=== PATIENT | male | born 1950 | race Caucasian/White ===

== ENCOUNTER → 2018-11-07 | Outpatient (CLI) | payer MEDICARE, OTHER ==
[~2018-11-07] MED LIST: ASP81TEC PO; CLOP75TA PO; HYDR-34 PO; HYDR-623 PO; LIRA0.6P SQ; METF-380 PO; Ondansetron PO; SIMV40TA4 PO; TELM1TAB PO
--- NOTE | 2018-11-07 16:41 | Diagnostic Imaging Report ---
EXAMINATION: PA and lateral chest at 2:18 p.m. INDICATION: Pneumonia. FINDINGS: The heart size is within normal limits and stable when compared to 05/07/2013. The lungs are clear. There is no evidence for failure, pneumonia, or for a pleural effusion. The mediastinum is not widened. The osseous structures are intact. In the interval since the prior exam, the patient has undergone a total shoulder arthroplasty procedure on the right. The shoulder prosthesis where visualized seems to be in good position. IMPRESSION: 1. There is no evidence for an acute cardiopulmonary abnormality. 2. There has been interval total shoulder arthroplasty procedure on the right. Dictated by: Dictated on workstation # [id number]
== END ==
LOC: RAD 14:12
PROVIDERS: ATTEND Family Medicine
DX: R06.00 Dyspnea, unspecified (principal)
CPT/HCPCS: 71046

== ENCOUNTER 2018-12-08 17:00 | Observation (INO) | payer MEDICARE, OTHER ==
[2018-12-08] VITALS (7 sets, daily range): BP systolic 113–168; BP diastolic 56–99
[~2018-12-08] VITALS: Ht 182.8 cm; Wt 99.4 kg
[2018-12-08] MEDS ORDERED: NS IV 1000 ML 1,000 ML IV ONE (17:23)
[2018-12-08 17:30] LABS: BASOPHILS # (AUTO) 0.1 10^3/uL (0.0-0.1); BASOPHILS % (AUTO) 1 % (0-10); EOSINOPHILS # (AUTO) 0.6 10^3/uL (0.0-0.3); EOSINOPHILS % (AUTO) 7 % (0-10); HEMATOCRIT 43 % (40-54); HEMOGLOBIN 14.1 G/DL (13.3-17.7); LYMPHOCYTES # (AUTO) 2.7 X 10^3 (1.0-4.0); LYMPHOCYTES % (AUTO) 32 % (12-44); MEAN CORPUSCULAR HEMOGLOBIN 29 PG (25-34); MEAN CORPUSCULAR HGB CONC 33 G/DL (32-36); MEAN CORPUSCULAR VOLUME 88 FL (80-99); MEAN PLATELET VOLUME 9.3 FL (7.4-10.4); MONOCYTES # (AUTO) 0.7 X 10^3 (0.0-1.0); MONOCYTES % (AUTO) 8 % (0-12); NEUTROPHILS # (AUTO) 4.4 X 10^3 (1.8-7.8); NEUTROPHILS % (AUTO) 52 % (42-75); PLATELET COUNT 245 10^3/uL (130-400); RED CELL DISTRIBUTION WIDTH 13.2 % (10.0-14.5); WHITE BLOOD COUNT 8.4 10^3/uL (4.3-11.0)
[2018-12-08] MEDS ORDERED: NITROGLYCERIN 0.4 MG SL TABS BTL 25'S SL PRN ×2 (17:30→22:30)
--- NOTE | 2018-12-08 17:33 | ED Chest Pain ---
General Chief Complaint: Chest Pain Stated Complaint: CHEST PAIN Nursing Triage Note: PT AMBULATE TO ROOM 04 WITH C/O CHEST PAIN STARTING TODAY. PT C/O LEFT LEG NUMBNESS WITHOUT WEAKNESS OR SYNCOPE. Nursing Sepsis Screen: No Definite Risk Source: patient Exam Limitations: no limitations (SHIRAZ FRANCISCO MD) History of Present Illness Date Seen by Provider: Dec 08, 2018 Time Seen by Provider: 17:15 Initial Comments Here with report of chest pain that is left-sided that is intermittently on the right side. He's had more frequent and longer lasting chest pain over the last several weeks. Over the last couple of months he has had cough and congestion and has been treated for walking pneumonia that has not gotten better. Today he had several episodes of chest pain that are persistent and the most persistent is on the left side just below the nipple line. Has history of multiple cardiac stents. He is not on blood thinners and does not take aspirin regularly. He did take 3 full dose aspirin at noon today for the chest pain. He went to the walk- in clinic and was ultimately sent here. He had improvement of the clinic while on oxygen. Denies nausea, vomiting or diaphoresis. Complains of left lower leg pain intermittent and does admit to a long car ride at onset of breathing problems after going to and from [place]. 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 Brand name Plavix ok. Home Medications Aspirin 81 Mg Tabec, 81 MG PO DAILY, (Reported) Clopidogrel Bisulfate 75 Mg Tablet, 75 MG PO DAILY, (Reported) Hctz/Telmisartan 1 Each Tablet, 0.5 TAB PO DAILY, (Reported) take 1/2 tablet (40mg/12.5mg) po once daily Hydrocodone Bit/Acetaminophen 1 Ea Tablet, 1 EA PO Q4H PRN for PAIN Prescribed by: STEPHEN ESPINOZA on 05/09/131411 Liraglutide 0.6 Mg/0.1 Ml Pen.injctr, 1.8 MG SQ DAILY, (Reported) Metformin Hcl 1,000 Mg Tablet, 1,000 MG PO BID WITH MEALS, (Reported) Simvastatin 40 Mg Tablet, 40 MG PO DAILY, (Reported) [Ondansetron] 8 MG TAB, 4 MG PO Q6H PRN for NAUSEA Prescribed by: STEPHEN ESPINOZA on 05/09/131411 Patient Home Medication List Home Medication List Reviewed: Yes (SHIRAZ FRANCISCO MD) Review of Systems Review of Systems Constitutional: see HPI; No chills, No fever; weakness EENTM: No Symptoms Reported Respiratory: Cough, Shortness of Air Cardiovascular: Chest Pain; Denies Palpitations Gastrointestinal: No Symptoms Reported Genitourinary: No Symptoms Reported Musculoskeletal: no symptoms reported Skin: no symptoms reported (SHIRAZ FRANCISCO MD) All Other Systems Reviewed Negative Unless Noted: Yes (SHIRAZ FRANCISCO MD) Past Mhuwgka-Yhckdt-Lktzbc Hx Past Med/Social Hx: Reviewed Nursing Past Med/Soc Hx (SHIRAZ FRANCISCO MD) Patient Social History Alcohol Use: Denies Use Recreational Drug Use: No Smoking Status: Never a Smoker 2nd Hand Smoke Exposure: No Recent Foreign Travel: No Contact w/Someone Who Travel: No Recent Infectious Disease Expo: No Physical Abuse: No Sexual Abuse: No Mistreated: No Fear: No (SHIRAZ FRANCISCO MD) Immunizations Up To Date Tetanus Booster (TDap): Less than 5yrs (SHIRAZ FRANCISCO MD) Past Medical History Surgeries: Yes (RIGHT SHOULDER SCOPE, CARDIAC STENTS) Adenoidectomy, Appendectomy, Tonsillectomy Respiratory: No Cardiac: Yes (MVP, CORONARY STENT X1) Neurological: No Genitourinary: No Gastrointestinal: Yes (HX OF BLEEDING ULCERS) Musculoskeletal: Yes (DJD RIGHT SHOULDER) Arthritis Endocrine: Yes Diabetes, Insulin dep HEENT: No Cancer: No Psychosocial: No Integumentary: No Blood Disorders: No (SHIRAZ FRANCISCO MD) Coronary Stent Coronary Artery Disease, Hypertension (CARLOTA BERRY MD) Family Medical History Reviewed Nursing Family Hx (SHIRAZ FRANCISCO MD) Physical Exam Vital Signs Vital Signs - First Documented 12/08/18 17:07 Temp 36.5 Pulse 86 Resp 18 B/P (MAP) 144/95 (111) O2 Delivery Room Air (CARLOTA BERRY MD) Vital Signs Capillary Refill : Less Than 3 Seconds (SHIRAZ FRANCISCO MD) Height, Weight, BMI Height: 6'1.00" Weight: 207lbs. oz. 93.196062ur; 29.00 BMI Method: General Appearance: No Apparent Distress, WD/WN HEENT: PERRL/EOMI, Pharynx Normal Neck: Non Tender, Supple Respiratory: Lungs Clear, Normal Breath Sounds Cardiovascular: Regular Rate, Rhythm, No Murmur Gastrointestinal: Non Tender, Soft Extremity: Normal Range of Motion, Non Tender Neurologic/Psychiatric: Alert, Oriented x3 Skin: Normal Color, Warm/Dry (SHIRAZ FRANCISCO MD) Progress/Results/Core Measures Results/Orders Lab Results Laboratory Tests Test 12/08/18 17:12 12/08/18 17:45 12/08/18 19:40 Range/Units White Blood Count 8.4 4.3-11.0 10^3/uL Red Blood Count 4.83 4.35-5.85 10^6/uL Hemoglobin 14.1 13.3-17.7 G/DL Hematocrit 43 40-54 % Mean Corpuscular Volume 88 80-99 FL Mean Corpuscular Hemoglobin 29 25-34 PG Mean Corpuscular Hemoglobin Concent 33 32-36 G/DL Red Cell Distribution Width 13.2 10.0-14.5 % Platelet Count 245 130-400 10^3/uL Mean Platelet Volume 9.3 7.4-10.4 FL Neutrophils (%) (Auto) 52 42-75 % Lymphocytes (%) (Auto) 32 12-44 % Monocytes (%) (Auto) 8 0-12 % Eosinophils (%) (Auto) 7 0-10 % Basophils (%) (Auto) 1 0-10 % Neutrophils # (Auto) 4.4 1.8-7.8 X 10^3 Lymphocytes # (Auto) 2.7 1.0-4.0 X 10^3 Monocytes # (Auto) 0.7 0.0-1.0 X 10^3 Eosinophils # (Auto) 0.6 H 0.0-0.3 10^3/uL Basophils # (Auto) 0.1 0.0-0.1 10^3/uL Prothrombin Time 13.3 12.2-14.7 SEC INR Comment 1.0 0.8-1.4 Activated Partial Thromboplast Time 27 24-35 SEC Sodium Level 143 135-145 MMOL/L Potassium Level 4.2 3.6-5.0 MMOL/L Chloride Level 105 98-107 MMOL/L Carbon Dioxide Level 25 21-32 MMOL/L Anion Gap 13 5-14 MMOL/L Blood Urea Nitrogen 19 H 7-18 MG/DL Creatinine 1.45 H 0.60-1.30 MG/DL Estimat Glomerular Filtration Rate 49 BUN/Creatinine Ratio 13 Glucose Level 93 70-105 MG/DL Calcium Level 9.8 8.5-10.1 MG/DL Corrected Calcium 8.5-10.1 MG/DL Magnesium Level 1.9 1.6-2.4 MG/DL Total Bilirubin 0.5 0.1-1.0 MG/DL Aspartate Amino Transf (AST/SGOT) 22 5-34 U/L Alanine Aminotransferase (ALT/SGPT) 29 0-55 U/L Alkaline Phosphatase 85 40-136 U/L Myoglobin 63.5 10.0-92.0 NG/ML Troponin I < 0.028 < 0.028 <0.028 NG/ML Total Protein 7.5 6.4-8.2 GM/DL Albumin 4.6 H 3.2-4.5 GM/DL D-Dimer 0.32 0.00-0.49 UG/ML (CARLOTA BERRY MD) My Orders Orders - CARLOTA BERRY MD Chest Pa/Lat (2 View) (12/08/18 18:47) Troponin I (12/08/18 19:12) Metoprolol Succinate (Xl) Tab (Toprol Xl (12/08/18 20:45) Clopidogrel Tablet (Plavix Tablet) (12/08/18 20:45) (CARLOTA BERRY MD) Medications Given in ED Current Medications Medications Dose Ordered Sig/Paul Route Start Time Stop Time Status Last Admin Dose Admin Nitroglycerin 0.4 mg UD PRN SL 12/08/18 17:30 12/08/18 17:40 0.4 MG Sodium Chloride 1,000 ml @ 0 mls/hr Q0M ONCE IV 12/08/18 17:23 12/08/18 17:25 DC 12/08/18 17:40 999 MLS/HR (CARLOTA BERRY MD) Vital Signs/I&O 12/08/18 12/08/18 17:07 17:18 Temp 36.5 Pulse 86 Resp 18 B/P (MAP) 144/95 (111) O2 Delivery Room Air Room Air (CARLOTA BERRY MD) Blood Pressure Mean: 111 POS Progress Progress Note : Progress Note Seen and evaluated. IV, labs, EKG and chest x-ray ordered. ASA with held as patient took that this morning. Nitroglycerin sublingual ordered. Normal saline 1 L bolus. Patient is at higher risk for pulmonary embolism and has left leg pain with recent long car rides and shortness of air. We will go ahead and get CT angiogram of the chest. Monitor patient. (SHIRAZ FRANCISCO MD) Progress Note #1: Progress Note Care of this patient was assumed from Dr. Francisco. Verbal report was reviewed in chart has been reviewed. Patient reports his chest pain completely resolved with one nitroglycerin and has not returned. He states prominent symptoms recently have been easy fatigue with exertion and shortness of breath with exertion. He also sometimes feels tightness and/or pain in his chest when he lays down at night. He has been off Plavix for years but does have a history of coronary artery disease with stenting. CT angiogram of the chest had been considered earlier in the visit but his d-dimer is negative. I have inquired about his leg symptoms. He describes the left leg discomfort as numbness without pain. It starts behind the knee and radiates down toward the foot. He has no swelling, erythema, or tenderness in the calf or foot. Pedal pulses are equal and strong. I do not suspect DVT of the leg or PE of the chest after reviewing his d-dimer and reexamining him. Chest is clear to auscultation at this time with no wheezing or prolongation of expiratory phase. I will reassess after the 2 hour troponin and discussed with cardiology. Patient reports he has an appointment set up with Dr. Thapa for December 19. Progress Note #2: Time: 21:03 Progress Note Repeat troponin was negative. Patient remains pain-free. I discussed the case with Dr. Bullard who would like him admitted for observation. He requested that I add a beta liss and Plavix which will be done in the ER. Patient finished his liter of IV fluid to support his renal function. Progress Note #3: Time: 21:31 Progress Note Patient states that he has an allergic reaction to generic clopidogrel. He is only able to take brand-name Plavix. Since brand-name Plavix is not available, we will substitute with Brilinta. (CARLOTA BERRY MD) Initial ECG Impression Date: Dec 08, 2018 Initial ECG Impression Time: 17:09 Initial ECG Rate: 81 Initial ECG Rhythm: Normal Sinus Initial ECG Comparisson: No Previous ECG Available Comment Sinus rhythm with normal axis. No evidence of ST elevation [place]. No previous available for comparison. Interpreted by me. (SHIRAZ FRANCISCO MD) Diagnostic Imaging Diagonstic Imaging: Xray Plain Films/CT/US/NM/MRI: chest Comments Chest x-ray viewed by me and report reviewed. See report below: NAME: RANDY SERNA [facility] REC#: [id number] PT STATUS: REG ER : 1950 PHYSICIAN: CARLOTA BERRY MD ADMIT DATE: 12/08/18/ER Draft POSDate of Exam:12/08/18 CHEST PA/LAT (2 VIEW) INDICATION: Chest pain, leg numbness. COMPARISON: November 07, 2018. TECHNIQUE: Two radiographs of the chest dated December 08, 2018. FINDINGS: The cardiac silhouette and pulmonary vasculature are within normal limits. The lungs are clear. No pleural effusion. No pneumothorax. Right shoulder arthroplasty. No acute osseous abnormality. IMPRESSION: Stable examination without acute cardiopulmonary abnormality. Dictated on workstation # [id number] Dict: 12/08/181932 Trans: 12/08/181934 [id number] Interpreted by: ANDREINA VEGA MD (CARLOTA BERRY MD) Departure Communication (Admissions) Time/Spoke to Admitting Phy: 20:52 Dr. Middleton Time/Spoke to Consulting Phy: 20:40 Dr. Bullard (CARLOTA BERRY MD) Impression Primary Impression: Chest pain Qualified Codes: R07.9 - Chest pain, unspecified Additional Impressions: Dyspnea on exertion Coronary artery disease Qualified Codes: I25.10 - Atherosclerotic heart disease of [place] coronary artery without angina pectoris Disposition: ADMITTED INPATIENT Condition: Improved Admissions Decision to Admit Reason: Admit from ER (General) Decision to Admit/Date: Dec 08, 2018 Time/Decision to Admit Time: 20:40 (CARLOTA BERRY MD) Departure-Patient Inst. Referrals: MUKESH CIFUENTES MD (PCP/Family) Primary Care Physician SHIRAZ FRANCISCO MD Dec 08, 2018 17:33 CARLOTA TONEY MD Dec 08, 2018 19:49 POS
[2018-12-08 17:37] LABS: PROTHROMBIN TIME PATIENT 13.3 SEC (12.2-14.7)
[2018-12-08 17:42] LABS: ALANINE AMINOTRANSFERASE 29 U/L (0-55); ALBUMIN 4.6 GM/DL (3.2-4.5); ALKALINE PHOSPHATASE 85 U/L (40-136); BILIRUBIN,TOTAL 0.5 MG/DL (0.1-1.0); BUN/CREATININE RATIO 13; CALCIUM 9.8 MG/DL (8.5-10.1); CARBON DIOXIDE 25 MMOL/L (21-32); CHLORIDE 105 MMOL/L (98-107); CREATININE SERUM 1.45 MG/DL (0.60-1.30); GFR ESTIMATED 49; GLUCOSE 93 MG/DL (70-105); MAGNESIUM 1.9 MG/DL (1.6-2.4); POTASSIUM 4.2 MMOL/L (3.6-5.0); SODIUM 143 MMOL/L (135-145); TOTAL PROTEIN 7.5 GM/DL (6.4-8.2)
[2018-12-08] MEDS ORDERED: CATHETER FLUSH 10 ML SYR IV PRN (17:45)
[2018-12-08] MEDS ORDERED: HOLD METFORMIN - RECEIVED CONTRAST 20 ML VIAL IV SCH (17:45)
[2018-12-08] MEDS ORDERED: NS 100 ML (IVPB) BAG IV ONE (17:45)
[2018-12-08] MEDS ORDERED: IOHEXOL 350 MG/ML 150 ML (OMNIPAQUE 350) VIAL IV ONE (17:45)
--- NOTE | 2018-12-08 19:02 | NUR ---
Recieved report from FREDA Kuo to assume care of pt @ this time.
--- NOTE | 2018-12-08 19:36 | Diagnostic Imaging Report ---
INDICATION: Chest pain, leg numbness. COMPARISON: November 07, 2018. TECHNIQUE: Two radiographs of the chest dated December 08, 2018. FINDINGS: The cardiac silhouette and pulmonary vasculature are within normal limits. The lungs are clear. No pleural effusion. No pneumothorax. Right shoulder arthroplasty. No acute osseous abnormality. IMPRESSION: Stable examination without acute cardiopulmonary abnormality. Dictated by: Dictated on workstation # [id number]
[2018-12-08] MEDS ORDERED: CLOPIDOGREL 75 MG (PLAVIX) TABLET PO ONE (20:45)
[2018-12-08] MEDS ORDERED: meTOproloL SUCCINATE 50 MG (TOPROL XL) TAB PO SCH (20:45)
[2018-12-08] MEDS ORDERED: TICAGRELOR 90 MG TABLET (BRILINTA) PO ONE (21:40)
--- NOTE | 2018-12-08 21:50 | NUR ---
RANDY SERNA admitted to room 510-1, with an admitting diagnosis of CHEST PAIN, CAD , on 12/08/18 from ED via , accompanied by .RANDY SERNA introduced to surroundings, call light, bed controls, phone, TV, temperature control, lights, meal times, smoking policy, visitor policy, side rail policy, bathrooms and showers. Patient Rights given to patient in the handbook.RANDY SERNA verbalizes understanding that [facility] is not responsible for the loss or damage to any personal effects or valuables that are kept in the patients posession during their hospitalization. The following Patient Care Plans were discussed with the : Discharge Planning, ,, and .
[2018-12-08] MEDS ORDERED: morphine INJ 4 MG/ML 1 ML (VIAL/SYRINGE) IV PRN (22:30)
[2018-12-09 03:26] LABS: BASOPHILS % (AUTO) 1 % (0-10); EOSINOPHILS # (AUTO) 0.5 10^3/uL (0.0-0.3); EOSINOPHILS % (AUTO) 9 % (0-10); HEMATOCRIT 38 % (40-54); HEMOGLOBIN 12.6 G/DL (13.3-17.7); LYMPHOCYTES # (AUTO) 2.2 X 10^3 (1.0-4.0); LYMPHOCYTES % (AUTO) 39 % (12-44); MEAN CORPUSCULAR HEMOGLOBIN 29 PG (25-34); MEAN CORPUSCULAR HGB CONC 33 G/DL (32-36); MEAN CORPUSCULAR VOLUME 89 FL (80-99); MEAN PLATELET VOLUME 9.3 FL (7.4-10.4); MONOCYTES # (AUTO) 0.5 X 10^3 (0.0-1.0); MONOCYTES % (AUTO) 8 % (0-12); NEUTROPHILS # (AUTO) 2.5 X 10^3 (1.8-7.8); NEUTROPHILS % (AUTO) 43 % (42-75); PLATELET COUNT 211 10^3/uL (130-400); RED CELL DISTRIBUTION WIDTH 13.2 % (10.0-14.5); WHITE BLOOD COUNT 5.8 10^3/uL (4.3-11.0)
[2018-12-09 03:30] VITALS: BP 139/91
[2018-12-09 03:47] LABS: BUN/CREATININE RATIO 15; CALCIUM 9.1 MG/DL (8.5-10.1); CARBON DIOXIDE 23 MMOL/L (21-32); CHLORIDE 109 MMOL/L (98-107); CHOLESTEROL 109 MG/DL (< 200); CREATININE SERUM 1.17 MG/DL (0.60-1.30); GFR ESTIMATED > 60; GLUCOSE 89 MG/DL (70-105); HDL CHOLESTEROL 42 MG/DL (40-60); POTASSIUM 3.9 MMOL/L (3.6-5.0); SODIUM 144 MMOL/L (135-145); TRIGLYCERIDES 51 MG/DL (<150); VLDL CHOLESTEROL 10 MG/DL (5-40)
[2018-12-09] MEDS ORDERED: GLIMEPIRIDE 2 MG (AMARYL) TAB PO SCH (07:48)
[2018-12-09 08:00] VITALS: BP 136/79
[2018-12-09] MEDS ORDERED: amLODIPine 5 MG (NORVASC) TAB PO SCH (09:00)
[2018-12-09] MEDS ORDERED: meTOproloL SUCCINATE 50 MG (TOPROL XL) TAB PO SCH (09:00)
[2018-12-09] MEDS ORDERED: ASPIRIN E.C. 81 MG (ECOTRIN) TAB PO SCH (09:00)
[2018-12-09] MEDS ORDERED: TICAGRELOR 90 MG TABLET (BRILINTA) PO SCH (09:00)
--- NOTE | 2018-12-09 10:48 | Consultation-Cardiology ---
HPI-Cardiology Cardiology Consultation: Date of Consultation 12/09/18 Time Seen by a Provider: 10:35 Date of Admission Attending Physician Jess Middleton MD Admitting Physician Federico Farmer MD Consulting Physician JENNA MOSS MD, MA, FACP, FACC, FSCAI, CCDS HPI: Chief Complaint: CC: Chest discomfort and shortness of breath HPI 68 yo man with known CAD with two months of shortness of breath and intermittent chest discomfort. Shortness of breath has been persistent w/o relief for two months. Chest discomfort: transthoracic, mostly a feeling of tightness, sometimes sharp, mild to mod in intensity, lasting up to 10 min, onset a month ago, worse with lying flat, once a week or so, sometimes relieved with oral ASA. No palp or syncope or leg swelling. Has had intermittent numbness of the L leg for a couple of months Review of Systems-Cardiology Review of Systems Constitutional: No malaise, No tiredness, No weight loss, No weight gain Eyes: No vision change Ears/Nose/Throat: No ear discharge, No nasal drainage, No recent hearing loss Respiratory: As described under HPI Cardiovascular: As described under HPI Gastrointestinal: No diarrhea, No nausea, No vomiting Genitourinary: No dysuria, No hematuria, No urine frequency changes Musculoskeletal: No back pain, No joint pain Skin: No rash, No ulcerations Psychiatric/Neurological: No seizure, No focal weakness, No syncope Hematologic: No bleeding abnormalities All Other Systems Reviewed Negative Unless Noted: Yes UDI-Ealwpn-Qscwvt Hx Patient Social History Alcohol Use: Denies Use Recreational Drug Use: No Smoking Status: Never a Smoker 2nd Hand Smoke Exposure: No Recent Foreign Travel: No Recent Infectious Disease Expo: No Hospitalization with Isolation: Denies Immunizations Up To Date Tetanus Booster (TDap): Less than 5yrs Past Medical History PMH As described under Assessment. Family Medical History Family Medical History: No fam h/o early CAD or SCD Allergies and Home Medications Allergies Coded Allergies: clopidogrel (Verified Allergy, Intermediate, Hives, 12/08/18) Allergic to generic only. Brand name Plavix ok. Home Medications Aspirin 81 Mg Tabec, 81 MG PO DAILY, (Reported) Clopidogrel Bisulfate 75 Mg Tablet, 75 MG PO DAILY, (Reported) Hctz/Telmisartan 1 Each Tablet, 0.5 TAB PO DAILY, (Reported) take 1/2 tablet (40mg/12.5mg) po once daily Hydrocodone Bit/Acetaminophen 1 Ea Tablet, 1 EA PO Q4H PRN for PAIN Prescribed by: STEPHEN ESPINOZA on 05/09/131411 Liraglutide 0.6 Mg/0.1 Ml Pen.injctr, 1.8 MG SQ DAILY, (Reported) Metformin Hcl 1,000 Mg Tablet, 1,000 MG PO BID WITH MEALS, (Reported) Simvastatin 40 Mg Tablet, 40 MG PO DAILY, (Reported) [Ondansetron] 8 MG TAB, 4 MG PO Q6H PRN for NAUSEA Prescribed by: STEPHEN ESPINOZA on 05/09/131411 Patient Home Medication List Home Medication List Reviewed: Yes Physical Exam-Cardiology Physical Exam Vital Signs/I&O 12/08/18 12/08/18 12/08/18 12/09/18 22:45 23:00 23:23 00:00 Pulse 76 76 69 Resp 16 16 16 B/P (MAP) 134/76 (95) 129/78 (95) 113/56 (75) Pulse Ox 93 95 95 95 O2 Delivery Room Air Room Air Room Air Room Air 12/09/18 12/09/18 12/09/18 12/09/18 01:00 03:30 04:00 07:00 Temp 36.2 Pulse 69 61 63 Resp 16 B/P (MAP) 139/91 (107) Pulse Ox 96 95 O2 Delivery Room Air Room Air 12/09/18 12/09/18 12/09/18 08:00 08:00 09:00 Temp 36.2 Pulse 71 Resp 16 B/P (MAP) 136/79 (98) Pulse Ox 97 97 O2 Delivery Room Air Room Air Room Air 12/09/18 00:00 Intake Total 1000 ml Balance 1000 ml Capillary Refill : Less Than 3 Seconds Constitutional: AAO x 3, well-developed, well-nourished HEENT: EOMI, hearing is well preserved; No xanthelasmas are seen Neck: carotid pulses are 2 + bilaterally, with good upstrokes Respiratory: No accessory muscle use; other (good bilat air entry) Cardiovascular: regular rate-rhythm, S1 and S2, systolic murmur (faint FLAVIA ) Gastrointestinal: No tender; soft; No guarding, No rebound; audible bowel sounds Extremities: No clubbing, No cyanosis, No significant edema Neurologic/Psychiatric: oriented x 3, other (moves all limbs equally) Skin: No rash on exposed areas, No ulcerations on exposed areas Data Review Labs Laboratory Tests 12/08/18 17:12: White Blood Count 8.4, Red Blood Count 4.83, Hemoglobin 14.1, Hematocrit 43, Mean Corpuscular Volume 88, Mean Corpuscular Hemoglobin 29, Mean Corpuscular Hemoglobin Concent 33, Red Cell Distribution Width 13.2, Platelet Count 245, Mean Platelet Volume 9.3, Neutrophils (%) (Auto) 52, Lymphocytes (%) (Auto) 32, Monocytes (%) (Auto) 8, Eosinophils (%) (Auto) 7, Basophils (%) (Auto) 1, Neutrophils # (Auto) 4.4, Lymphocytes # (Auto) 2.7, Monocytes # (Auto) 0.7, Eosinophils # (Auto) 0.6H, Basophils # (Auto) 0.1, Prothrombin Time 13.3, INR Comment 1.0, Activated Partial Thromboplast Time 27, Sodium Level 143, Potassium Level 4.2, Chloride Level 105, Carbon Dioxide Level 25, Anion Gap 13, Blood Urea Nitrogen 19H, Creatinine 1.45H, Estimat Glomerular Filtration Rate 49, BUN/Creatinine Ratio 13, Glucose Level 93, Calcium Level 9.8, Corrected Calcium , Magnesium Level 1.9, Total Bilirubin 0.5, Aspartate Amino Transf (AST/SGOT) 22, Alanine Aminotransferase (ALT/SGPT) 29, Alkaline Phosphatase 85, Myoglobin 63.5, Troponin I < 0.028, Total Protein 7.5, Albumin 4.6H 12/08/18 17:45: D-Dimer 0.32 12/08/18 19:40: Troponin I < 0.028 12/09/18 02:55: White Blood Count 5.8, Red Blood Count 4.30L, Hemoglobin 12.6L, Hematocrit 38L, Mean Corpuscular Volume 89, Mean Corpuscular Hemoglobin 29, Mean Corpuscular Hemoglobin Concent 33, Red Cell Distribution Width 13.2, Platelet Count 211, Elin n Platelet Volume 9.3, Neutrophils (%) (Auto) 43, Lymphocytes (%) (Auto) 39, Monocytes (%) (Auto) 8, Eosinophils (%) (Auto) 9, Basophils (%) (Auto) 1, Neutrophils # (Auto) 2.5, Lymphocytes # (Auto) 2.2, Monocytes # (Auto) 0.5, Eosinophils # (Auto) 0.5H, Basophils # (Auto) 0.0, Sodium Level 144, Potassium Level 3.9, Chloride Level 109H, Carbon Dioxide Level 23, Anion Gap 12, Blood Urea Nitrogen 17, Creatinine 1.17, Estimat Glomerular Filtration Rate > 60, BUN/Creatinine Ratio 15, Glucose Level 89, Calcium Level 9.1, Troponin I < 0.028, Triglycerides Level 51, Cholesterol Level 109, LDL Cholesterol Direct 57, VLDL Cholesterol 10, HDL Cholesterol 42 12/09/18 09:09: Glucometer 156H Laboratory Tests 12/08/18 17:12 12/09/18 02:55 A/P-Cardiology Assessment/Admission Diagnosis Chest discomfort, etiology undetermined. No evidence of ACS DM II, insulin-requiring Hypertension Hyperlipidemia CAD. H/o two coronary stents, both at [place], [place], last in or around 2015 (Dr Hawkins). Details are not known L leg numbness of undetermined etiology. No evidence of vascular compromise on physical exam today Discussion and Recomendations * We reviewed and discussed his CV issues * He wishes to go home. This seem reasonable, given that he has no evidence of ACS and that he feels "great." * We have advised him to return to ER in case of recurrent symptoms or new sympt oms * He presented with renal insuff, probably due to intravascular volume contraction from chronic diuretic use. We recommend d/c HCTZ/telmisartan and replace with metoprolol succinate that he has tolerated well during this hospitalization * He is only intermittently compliant with ASA. We have advised ASA 81 daily * He is scheduled to see Dr Thapa this coming week. We have asked him to keep his apptt Clinical Quality Measures AMI/AHF: ASA po Prior to arrival: Yes DVT/VTE Risk/Contraindication: Risk Factor Score Per Nursin RFS Level Per Nursing on Admit: 2=Moderate JENNA MOSS MD FACP FAC CCDS Dec 09, 2018 10:48 POS
[2018-12-09] MEDS ORDERED: ATOR20TA66 PO (11:27)
[2018-12-09] MEDS ORDERED: GLIM2TAB2 PO (11:27)
[2018-12-09] MEDS ORDERED: AMLO5TAB9 PO (11:27)
[2018-12-09] MEDS ORDERED: LOSA100T57 PO (11:27)
[2018-12-09] MEDS ORDERED: METO50TA7 PO (11:50)
[2018-12-09] MEDS ORDERED: ASPI-999 PO (11:50)
--- NOTE | 2018-12-09 11:51 | Discharge Inst-Cardiology ---
Discharge Inst-Cardiac Discharge Medications New Medications: Aspirin (Aspirin) 81 Mg Tab.chew 81 MG PO DAILY for 30 Days, #30 TAB 2 Refills Metoprolol Succinate (Metoprolol Succinate) 50 Mg Tab.er.24h 50 MG PO DAILY for 30 Days, #30 TAB 2 Refills Continued Medications: Amlodipine Besylate (Amlodipine Besylate) 5 Mg Tablet 5 MG PO DAILY Atorvastatin Calcium (Atorvastatin Calcium) 20 Mg Tablet 20 MG PO DAILY Glimepiride (Glimepiride) 2 Mg Tablet 2 MG PO DAILY Liraglutide (Victoza) 0.6 Mg/0.1 Ml Pen.injctr 1.8 MG SQ DAILY Metformin Hcl (Metformin 1000 Mg) 1,000 Mg Tablet 1000 MG PO BID WITH MEALS Discontinued Medications: Losartan Potassium (Losartan Potassium) 100 Mg Tablet 100 MG PO DAILY Patient Instructions Patient Instructions: F/u with Dr Thapa this week Orders-Post D/C & Referrals Pneu Vac Indicated: Yes JENNA MOSS MD FACP FAC CCDS Dec 09, 2018 11:51 POS
[2018-12-09 12:00] VITALS: BP 124/75
--- NOTE | 2018-12-09 12:15 | NUR ---
DC in good condition home. Escorted out of building in w/c
--- NOTE | 2018-12-09 18:22 | Discharge Summary ---
Discharge Summary Hospital Course Was the Problem List Reviewed?: Yes Problems/Dx: (1) Chest pain Status: Acute (2) Coronary artery disease Status: Chronic (3) HTN (hypertension) Status: Chronic Qualifiers: Qualified Codes: I10 - Essential (primary) hypertension (4) HLD (hyperlipidemia) Status: Chronic Qualifiers: Qualified Codes: E78.5 - Hyperlipidemia, unspecified (5) Acute kidney injury Status: Acute Final Diagnosis: Chest pain likely due to coronary artery dis Hospital Course Date of Admission: Dec 08, 2018 at 20:58 Admission Diagnosis : Chest pain Family Physician/Provider: Federico Farmer MD Date of Discharge: 12/09/18 Discharge Diagnosis: Chest pain likely due to coronary artery disease Hospital Course: Tom Lugo is a 68-year-old male with past medical history of hypertension, hyperlipidemia, coronary artery disease, who presented with left leg numbness. Further evaluation revealed chest pain and dyspnea on exertion. He was admitted for ACS rule out. 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 Thapa here in [place]. He has been nonadherent with his aspirin. He was found to be dehydrated on admission and IV fluids improved his acute kidney injury. His a hydrochlorothiazide and ARB were discontinued and he was started on metoprolol. His troponins remain negative throughout his stay. Cardiology was consulted and after discussion with Dr. Bullard, he was discharged home with follow-up with Dr. Thapa. Labs and Pending Lab Test: Laboratory Tests 12/08/18 19:40: Troponin I < 0.028 12/09/18 02:55: Troponin I < 0.028, White Blood Count 5.8, Red Blood Count 4.30L, Hemoglobin 12.6L, Hematocrit 38L, Mean Corpuscular Volume 89, Mean Corpuscular Hemoglobin 29, Mean Corpuscular Hemoglobin Concent 33, Red Cell Distribution Width 13.2, Platelet Count 211, Mean Platelet Volume 9.3, Neutrophils (%) (Auto) 43, Lymphocytes (%) (Auto) 39, Monocytes (%) (Auto) 8, Eosinophils (%) (Auto) 9, Basophils (%) (Auto) 1, Neutrophils # (Auto) 2.5, Lymphocytes # (Auto) 2.2, Mon ocytes # (Auto) 0.5, Eosinophils # (Auto) 0.5H, Basophils # (Auto) 0.0, Sodium Level 144, Potassium Level 3.9, Chloride Level 109H, Carbon Dioxide Level 23, Anion Gap 12, Blood Urea Nitrogen 17, Creatinine 1.17, Estimat Glomerular Filtration Rate > 60, BUN/Creatinine Ratio 15, Glucose Level 89, Calcium Level 9.1, Triglycerides Level 51, Cholesterol Level 109, LDL Cholesterol Direct 57, VLDL Cholesterol 10, HDL Cholesterol 42 12/09/18 09:09: Glucometer 156H Home Meds Active Aspirin 81 Mg Tab.chew 81 Mg PO DAILY 30 Days Metoprolol Succinate 50 Mg Tab.er.24h 50 Mg PO DAILY 30 Days Reported Atorvastatin Calcium 20 Mg Tablet 20 Mg PO DAILY Glimepiride 2 Mg Tablet 2 Mg PO DAILY Amlodipine Besylate 5 Mg Tablet 5 Mg PO DAILY Victoza (Liraglutide) 0.6 Mg/0.1 Ml Pen.injctr 1.8 Mg SQ DAILY Metformin 1000 Mg (Metformin HCl) 1,000 Mg Tablet 1,000 Mg PO BID WITH MEALS Assessment/Pt Instructions Take medications as prescribed. Follow up with Dr. Thapa at your previously scheduled appointment. Discharge Instructions Discharge Diet: No Restrictions Activity as Tolerated: Yes Pneumonia Vaccine Order Indica: Yes Consultations Cardiology Discharge Physical Examination General Appearance: Alert, Oriented X3, Cooperative, No Acute Distress HEENT: Atraumatic, PERRLA, EOMI, Mucous Memb Moist/Angus Respiratory: Clear to Auscultation, Normal Air Movement Cardiovascular: Regular Rate, Normal S1, Normal S2, No Murmurs Abdominal: Normal Bowel Sounds, Soft, No Tenderness Extremities: No Edema, No Tenderness/Swelling Skin: No Rashes, No Significant Lesion Neuro: Normal Speech, Strength at 5/5 X4 Ext, Normal Tone Psych/Mental Status: Mental Status NL, Mood NL Allergies: Coded Allergies: clopidogrel (Verified Allergy, Intermediate, Hives, 12/08/18) Allergic to generic only. Brand name Plavix ok. Discharge Summary Date of Admission Dec 08, 2018 at 20:58 Date of Discharge Dec 09, 2018 at 12:15 Discharge Date: Dec 09, 2018 Discharge Time: 12:00 Admission Diagnosis Chest pain Consults/Procedures Consulations Cardiology Discharge Diagnosis Chest pain likely due to coronary artery disease (1) Chest pain Status: Acute (2) Coronary artery disease Status: Chronic Clinical Quality Measures AMI/AHF: ASA po Prior to arrival: Yes DVT/VTE Risk/Contraindication: Risk Factor Score Per Nursin RFS Level Per Nursing on Admit: 2=Moderate CARLEE PAT MD Dec 09, 2018 18:20 POS
== END 2018-12-09 12:15 | disposition home or self-care (01) ==
LOC: EDUNIT# 17:00 → ER 17:01 → CSD 20:58 → UNDOADMOB 20:58 → CSD 21:50 → UNDODISOB 12-09 12:15
PROVIDERS: ADMIT Internal Medicine; ATTEND Internal Medicine
DX: I25.10 Atherosclerotic heart disease of native coronary artery without angina pectoris (principal); I10 Essential (primary) hypertension; M19.90 Unspecified osteoarthritis, unspecified site; E11.9 Type 2 diabetes mellitus without complications; E78.5 Hyperlipidemia, unspecified; N17.9 Acute kidney failure, unspecified; Z95.1 Presence of aortocoronary bypass graft; Z79.82 Long term (current) use of aspirin; Z79.02 Long term (current) use of antithrombotics/antiplatelets; Z79.891 Long term (current) use of opiate analgesic; Z79.84 Long term (current) use of oral hypoglycemic drugs; Z90.49 Acquired absence of other specified parts of digestive tract; Z79.4 Long term (current) use of insulin; Z88.8 Allergy status to other drugs, medicaments and biological substances
CPT/HCPCS: 36415; 71046; 80048; 80053; 80061; 82962; 83735; 83874; 84484; 85025; 85379; 85610; 85730; 93005; 93041; 96360; 96361

== ENCOUNTER → 2020-10-23 | Outpatient (CLI) | payer MEDICARE, OTHER ==
[~2020-10-23] MED LIST changes: +AMLO-250 PO; +ASPI-999 PO; +ATOR20TA66 PO; +GLIM2TAB4 PO; +LOSA100T57 PO; +METO50TA7 PO
--- NOTE | 2020-10-23 15:39 | Diagnostic Imaging Report ---
EXAMINATION: Chest 2 view HISTORY: Cough and fatigue COMPARISON: 12/08/2018 FINDINGS: The lungs are clear without edema or pneumonia. No pleural effusion or pneumothorax. Heart size is normal. IMPRESSION: 1. Clear lungs. Dictated by: Dictated on workstation # [id number]
[2020-10-23 15:45] LABS: BASOPHILS % (AUTO) 1 % (0-10); EOSINOPHILS # (AUTO) 0.5 10^3/uL (0.0-0.3); EOSINOPHILS % (AUTO) 7 % (0-10); HEMATOCRIT 39 % (40-54); HEMOGLOBIN 12.9 g/dL (13.3-17.7); LYMPHOCYTES % (AUTO) 31 % (12-44); MEAN CORPUSCULAR HEMOGLOBIN 29 pg (25-34); MEAN CORPUSCULAR HGB CONC 33 g/dL (32-36); MEAN CORPUSCULAR VOLUME 88 fL (80-99); MEAN PLATELET VOLUME 8.8 fL (9.0-12.2); MONOCYTES # (AUTO) 0.4 X 10^3 (0.0-1.0); MONOCYTES % (AUTO) 6 % (0-12); NEUTROPHILS # (AUTO) 3.7 X 10^3 (1.8-7.8); NEUTROPHILS % (AUTO) 56 % (42-75); PLATELET COUNT 215 10^3/uL (130-400); WHITE BLOOD COUNT 6.6 10^3/uL (4.3-11.0)
[2020-10-23 15:51] LABS: ALBUMIN 4.4 GM/DL (3.2-4.5); BILIRUBIN,TOTAL 0.5 MG/DL (0.1-1.0); CALCIUM 10.1 MG/DL (8.5-10.1); CREATININE SERUM 1.57 MG/DL (0.60-1.30); POTASSIUM 4.1 MMOL/L (3.6-5.0); TOTAL PROTEIN 7.1 GM/DL (6.4-8.2)
== END ==
LOC: RAD 15:10
PROVIDERS: ATTEND Internal Medicine
DX: R05 Cough (principal); R53.83 Other fatigue; E11.9 Type 2 diabetes mellitus without complications
CPT/HCPCS: 36415; 71046; 80053; 85025; 85379

== ENCOUNTER → 2020-10-28 | Outpatient (CLI) | payer MEDICARE, OTHER | LOC: LAB 09:30 | PROVIDERS: ATTEND Internal Medicine | DX: R05 Cough (principal) | CPT/HCPCS: 36415; 85379 ==

== ENCOUNTER → 2021-05-12 | Outpatient (CLI) | payer MEDICARE, OTHER ==
[~2021-05-12] MED LIST changes: +RT-ALBUTEROL SULF 2.5 MG/3 ML PRE-MIX VIAL INH ONE
== END ==
LOC: RT 09:15
PROVIDERS: ATTEND Internal Medicine
DX: R06.02 Shortness of breath (principal); R05.9 Cough, unspecified
CPT/HCPCS: 94060; 94726; 94729

== ENCOUNTER → 2021-05-13 | Outpatient (CLI) | payer MEDICARE, OTHER ==
[~2021-05-13] MED LIST changes: -RT-ALBUTEROL SULF 2.5 MG/3 ML PRE-MIX VIAL INH ONE
== END ==
LOC: LAB 10:14
PROVIDERS: ATTEND Internal Medicine
DX: I25.10 Atherosclerotic heart disease of native coronary artery without angina pectoris (principal); I70.90 Unspecified atherosclerosis
CPT/HCPCS: 36415; 84484